=== PATIENT | female | born 1990 | race Caucasian/White ===

== ENCOUNTER 2016-05-01 10:50 | Inpatient (IN) | payer BC, OTHER ==
[2016-05-01 12:08] VITALS: BMI 19.1
--- NOTE | 2016-05-01 12:15 | HP ---
COWS - Scale Resting Pulse: 0= [place] 80 or Below Sweatin= Chills/Flushing Restless Observation: 1= Difficult to Sit Still Pupil Size: 0= Normal to Room Light Bone or Joint Aches: 2= Severe Diffuse Aches Runny Nose/ Eye Tearin= Runny Nose/Eyes GI Upset > 30mins: 1= Stomach Cramp Tremor Observation: 1= Tremor [place], Not Seen Yawning Observation: 1= 1-2x During Session Anxiety or Irritability: 1=Feels Anxious/Irritable Goose Flesh Skin: 0=Smooth Skin COWS Score: 10 Admission ROS BHS - HPI Chief Complaint: I get horrible withdrawal, I want to stop using Allergies/Adverse Reactions: Allergies Allergy/AdvReac Type Severity Reaction Status Date / Time No Known Allergies Allergy Verified 05/01/16 12:11 History of Present Illness: 25 yo woman here for detox from heroin - history of suboxone and outpatient rehab. No seizures. Exam Limitations: Clinical Condition - Ebola screening Have you traveled outside of the country in the last 21 days: No (N) Have you had contact with anyone from an Ebola affected area: No Have you been sick,other than usual withdrawal symptoms: No Do you have a fever: No - Review of Systems Constitutional: Loss of Appetite, Malaise, Changes in sleep, Unintentional Wgt. Loss EENT: reports: Nose Congestion Respiratory: reports: No Symptoms reported Cardiac: reports: No Symptoms Reported GI: reports: Nausea, Poor Appetite, Indigestion, Abdominal cramping : reports: No Symptoms Reported Musculoskeletal: reports: Muscle Pain Integumentary: reports: No Symptoms Reported Neuro: reports: Headache Endocrine: reports: No Symptoms Reported Hematology: reports: No Symptoms Reported Psychiatric: reports: Judgement Intact, Mood/Affect Appropiate, Orientated x3, Anxious Other Systems: Reviewed and Negative Patient History - Patient Medical History Hx Anemia: No Hx Asthma: No Hx Chronic Obstructive Pulmonary Disease (COPD): No Hx Cancer: No Hx Cardiac Disorders: No Hx Congestive Heart Failure: No Hx Hypertension: No Hx Hypercholesterolemia: No Hx Pacemaker: No HX Cerebrovascular Accident: No Hx Seizures: No Hx Dementia: No Hx Diabetes: No Hx Gastrointestinal Disorders: No Hx Liver Disease: No Hx Genitourinary Disorders: No Hx Sexually Transmitted Disorders: No Hx Renal Disease (ESRD): No Hx Thyroid Disease: No Hx Human Immunodeficiency Virus (HIV): No Hx Hepatitis C: No Hx Depression: No Hx Suicide Attempt: No Hx Bipolar Disorder: No Hx Schizophrenia: No - Patient Surgical History Past Surgical History: No - PPD History Previous Implant?: No PPD to be Administered?: Yes - Reproductive History Patient is a Female of Child Bearing Age (11 -55 yrs old): Yes Patient : No - Smoking Cessation Smoking history: Current every day smoker Have you smoked in the past 12 months: Yes Aproximately how many cigarettes per day: 6 Hx Chewing Tobacco Use: No Initiated information on smoking cessation: Yes 'Breaking Loose' booklet given: 05/01/16 (given on floor) - Substance & Tx. History Hx Alcohol Use: No Hx Substance Use: Yes Substance Use Type: Heroin Hx Substance Use Treatment: Yes (outpatient rehab, suboxone) - Substances Abused Heroin Route: Injection Frequency: Daily Amount used: 5-6 bags Age of first use: 23 Date of Last Use: 05/01/16 Family Disease History - Family Disease History Family Disease History: Other: Father ( alzheimers), Mother (social drinker) Admission Physical Exam S - Vital Signs Vital Signs: Vital Signs - 24 hr 05/01/16 12:03 Temperature 98.2 F Pulse Rate 73 Respiratory 18 Rate Blood Pressure 106/65 - Physical General Appearance: Yes: Nourished, Appropriately Dressed, Mild Distress, Thin, Anxious HEENTM: Yes: Hearing grossly Normal, Normocephalic, Normal Voice, Pharynx Normal , Nasal Congestion Respiratory: Yes: Normal Breath Sounds, Decreased Breath Sounds, No Respiratory Distress Neck: Yes: No masses,lesions,Nodules, Trachea in good position Breast: Yes: Breast Exam Deferred Cardiology: Yes: Regular Rhythm, Regular Rate Abdominal: Yes: Soft Genitourinary: Yes: Within Normal Limits Back: Yes: Within Normal Limits Musculoskeletal: Yes: full range of Motion, Gait Steady, Muscle Pain Extremities: Yes: Normal Inspection, Normal Range of Motion, Non-Tender Neurological: Yes: Fully Oriented, Alert, Normal Mood/Affect, Normal Response Integumentary: Yes: Normal Color, Warm, Track Barriga Lymphatic: Yes: Within Normal Limits - Diagnostic (1) Nicotine dependence Current Visit: Yes Status: Chronic Qualifiers: Nicotine product type: cigarettes Substance use status: uncomplicated Qualified Code(s): F17.210 - Nicotine dependence, cigarettes, uncomplicated (2) Uncomplicated opioid dependence Current Visit: Yes Status: Chronic Cleared for Admission [facility] - Detox or Rehab [facility] Level of Care: Medically Managed Detox Regimen/Protocol: Methadone [facility] Breath Alcohol Content Breath Alcohol Content: 0 Urine Pregancy Test - Result Urine Test Results: Negative- NO Line Present Urine Drug Screen - Results Drug Screen Negative: No Urine Drug Screen Results: OPI-Opiates, OXY-Oxycodone
[2016-05-01] MEDS ORDERED: LOPERAMIDE HCL 2 MG CAPSULE PO PRN (12:21)
[2016-05-01] MEDS ORDERED: MAG HYDROX/AL HYDROX/SIMETH 30 ML UNIT-DOSE CUP PO PRN (12:21)
[2016-05-01] MEDS ORDERED: NICOTINE POLACRILEX 2 MG GUM BC PRN (12:21)
[2016-05-01] MEDS ORDERED: ACETAMINOPHEN 325 MG TABLET (FP) PO PRN (12:21)
[2016-05-01] MEDS ORDERED: guaiFENesin/D-METHORPHAN HB 10 ML UNIT-DOSE CUPS PO PRN (12:21)
[2016-05-01] MEDS ORDERED: IBUPROFEN 400 MG TABLET (FP) PO PRN (12:21)
[2016-05-01] MEDS ORDERED: MAGNESIUM CITRATE 300 ML BOTTLE PO PRN (12:21)
[2016-05-01] MEDS ORDERED: P-EPHED 60MG/TRIPROLIDI 2.5MG TABLET PO PRN (12:21)
[2016-05-01] MEDS ORDERED: METHADONE HCL 10 MG TABLET (FOR DETOX USE ONLY) PO ONE ×3 (12:21→23:00)
[2016-05-01] MEDS ORDERED: MAGNESIUM HYDROX 2400MG/30ML ORAL SUSPENSION 30 ML CUP PO PRN (12:21)
[2016-05-01] MEDS ORDERED: MENTHOL/PHENOL 1 EACH UD MM PRN (12:21)
[2016-05-01] MEDS: diazePAM 5 MG TABLET PO PRN ×2 (16:02→22:14)
--- NOTE | 2016-05-01 16:02 | EKG ---
Test Reason : Blood Pressure : / mmHG Vent. Rate : 062 BPM Atrial Rate : 062 BPM P-R Int : 162 ms QRS Dur : 086 ms QT Int : 394 ms P-R-T Axes : 039 -44 036 degrees QTc Int : 399 ms NORMAL SINUS RHYTHM INDETERMINATE AXIS BORDERLINE ECG NO PREVIOUS ECGS AVAILABLE Confirmed by KINA AN, FLORIN ([id number]) on 05/01/2016 4:02:04 PM Referred By: Confirmed By:FLORIN CASTANON MD
[2016-05-01] MEDS: NICOTINE 7 MG/24 HOURS TOPICAL PATCH TD SCH (16:10)
[2016-05-01 17:55] LABS: URINE APPEARANCE CLOUDY; URINE BILIRUBIN NEGATIVE (NEGATIVE); URINE BLOOD NEGATIVE (NEGATIVE); URINE COLOR YELLOW; URINE GLUCOSE (UA) NEGATIVE (NEGATIVE); URINE KETONE NEGATIVE (NEGATIVE); URINE NITRITE NEGATIVE (NEGATIVE); URINE UROBILINOGEN NEGATIVE E.U./dl (0.2-1.0)
[2016-05-01 18:13] LABS: URINE LEUK ESTERASE 3+ (NEGATIVE); URINE PROTEIN 1+ (NEGATIVE)
[2016-05-01 18:33] LABS: URINE BACTERIA RARE /hpf (NONE SEEN); URINE MUCUS FEW; URINE RBC 9 /hpf (0-3); URINE WBC 11 /hpf (3-5)
[2016-05-01] MEDS: diphenhydrAMINE HCL 50 MG CAPSULE PO PRN (22:14)
[2016-05-01] MEDS: THIAMINE HCL 100 MG TABLET (FP) PO SCH (22:14)
[2016-05-02 09:22] LABS: MCHC 34.2 g/dl (32.0-36.0); MEAN CELL VOLUME 87.7 fl (80-96); MEAN PLT VOLUME 8.1 fl (7.5-11.1); PLATELET COUNT 270 K/MM3 (134-434); RDW 13.4 % (11.6-15.6)
[2016-05-02 09:24] LABS: ALBUMIN 3.3 g/dl (3.4-5.0); ALK PHOS 50 U/L (45-117); ANION GAP 7 (8-16); BILIRUBIN,TOTAL 0.3 mg/dL (0.2-1.0); CALCIUM 8.9 mg/dL (8.5-10.1); CO2 29 mmol/L (21-32); CREATININE 0.6 mg/dL (0.55-1.02); GLUCOSE,RANDOM 87 mg/dL (74-106); SGOT/AST 15 U/L (15-37); SGPT/ALT 24 U/L (12-78); TOT PROT 6.1 g/dl (6.4-8.2)
[2016-05-02] MEDS ORDERED: METHADONE HCL 10 MG TABLET (FOR DETOX USE ONLY) PO ONE (10:00)
[2016-05-02] MEDS: PRENATAL VITAMINS W/ FOLIC ACID TABLET (FP) PO SCH (10:35)
[2016-05-02] MEDS: NICOTINE 7 MG/24 HOURS TOPICAL PATCH TD SCH (10:38)
[2016-05-02] MEDS: diazePAM 5 MG TABLET PO PRN ×2 (10:39→21:43)
--- NOTE | 2016-05-02 11:48 | PN ---
BHS COWS - Scale Resting Pulse: 1= [place] 81-100 Sweatin=Flushed/Facial Moisture Restless Observation: 3= Extraneous Movement Pupil Size: 1= Pupils >than Normal Bone or Joint Aches: 2= Severe Diffuse Aches Runny Nose/ Eye Tearin= Runny Nose/Eyes GI Upset > 30mins: 2= Nausea/Diarrhea Tremor Observation of Outstretched Hands: 2= Slight Tremor Visible Yawning Observation: 1= 1-2x During Session Anxiety or Irritability: 2=Irritable/Anxious Goose Flesh Skin: 0=Smooth Skin COWS Score: 18 BHS Progress Note (SOAP) Subjective: ALERT,IRRITABLE,ANXIOUS,INTERRUPTED SLEEP,PAIN IN THE BODY BACK Objective: 05/02/16 11:45 Vital Signs Temperature 98.1 F 05/02/16 10:00 Pulse Rate 89 05/02/16 10:00 Respiratory Rate 18 05/02/16 10:00 Blood Pressure 113/60 05/02/16 10:00 O2 Sat by Pulse Oximetry (%) EKG NSR Laboratory Last Values WBC 5.0 K/mm3 (4.0-10.0) 05/02/16 07:20 RBC 4.44 M/mm3 (3.60-5.2) 05/02/16 07:20 Hgb 13.3 GM/dL (10.7-15.3) 05/02/16 07:20 Hct 39.0 % (32.4-45.2) 05/02/16 07:20 MCV 87.7 fl (80-96) 05/02/16 07:20 MCHC 34.2 g/dl (32.0-36.0) 05/02/16 07:20 RDW 13.4 % (11.6-15.6) 05/02/16 07:20 Plt Count 270 K/MM3 (134-434) 05/02/16 07:20 MPV 8.1 fl (7.5-11.1) 05/02/16 07:20 Sodium 144 mmol/L (136-145) 05/02/16 07:20 Potassium 4.1 mmol/L (3.5-5.1) 05/02/16 07:20 Chloride 108 mmol/L (98-107) H 05/02/16 07:20 Carbon Dioxide 29 mmol/L (21-32) 05/02/16 07:20 Anion Gap 7 (8-16) L 05/02/16 07:20 BUN 10 mg/dL (7-18) 05/02/16 07:20 Creatinine 0.6 mg/dL (0.55-1.02) 05/02/16 07:20 Creat Clearance w eGFR > 60 (>60) 05/02/16 07:20 Random Glucose 87 mg/dL (74-106) 05/02/16 07:20 Calcium 8.9 mg/dL (8.5-10.1) 05/02/16 07:20 Total Bilirubin 0.3 mg/dL (0.2-1.0) 05/02/16 07:20 AST 15 U/L (15-37) 05/02/16 07:20 ALT 24 U/L (12-78) 05/02/16 07:20 Alkaline Phosphatase 50 U/L (45-117) 05/02/16 07:20 Total Protein 6.1 g/dl (6.4-8.2) L 05/02/16 07:20 Albumin 3.3 g/dl (3.4-5.0) L 05/02/16 07:20 Urine Color Yellow 05/01/16 14:00 Urine Appearance Cloudy 05/01/16 14:00 Urine pH 5.0 (5.0-8.0) 05/01/16 14:00 Ur Specific [place] 1.020 (1.001-1.035) 05/01/16 14:00 Urine Protein 1+ (NEGATIVE) H 05/01/16 14:00 Urine Glucose (UA) Negative (NEGATIVE) 05/01/16 14:00 Urine Ketones Negative (NEGATIVE) 05/01/16 14:00 Urine Blood Negative (NEGATIVE) 05/01/16 14:00 Urine Nitrite Negative (NEGATIVE) 05/01/16 14:00 Urine Bilirubin Negative (NEGATIVE) 05/01/16 14:00 Urine Urobilinogen Negative E.U./dl (0.2-1.0) 05/01/16 14:00 Ur Leukocyte Esterase 3+ (NEGATIVE) H 05/01/16 14:00 Urine RBC 9 /hpf (0-3) 05/01/16 14:00 Urine WBC 11 /hpf (3-5) 05/01/16 14:00 Ur Epithelial Cells Many /hpf (FEW) 05/01/16 14:00 Urine Bacteria Rare /hpf (NONE SEEN) 05/01/16 14:00 Urine Mucus Few 05/01/16 14:00 RPR Titer Nonreactive (NONREACTIVE) 05/02/16 07:20 Assessment: 05/02/16 11:47 WITHDRAWAL SYMPTOM Plan: CONTINUE DETOX,REPEAT UA
[2016-05-02] MEDS: THIAMINE HCL 100 MG TABLET (FP) PO SCH (21:40)
[2016-05-02] MEDS: diphenhydrAMINE HCL 50 MG CAPSULE PO PRN (21:44)
[2016-05-03] MEDS ORDERED: METHADONE HCL 5 MG TABLET (FOR DETOX USE ONLY) PO ONE (10:00)
--- NOTE | 2016-05-03 10:17 | PN ---
S COWS - Scale Resting Pulse: 0= [place] 80 or Below Sweatin= Chills/Flushing Restless Observation: 3= Extraneous Movement Pupil Size: 1= Pupils >than Normal Bone or Joint Aches: 2= Severe Diffuse Aches Runny Nose/ Eye Tearin= Runny Nose/Eyes GI Upset > 30mins: 2= Nausea/Diarrhea Tremor Observation of Outstretched Hands: 2= Slight Tremor Visible Yawning Observation: 1= 1-2x During Session Anxiety or Irritability: 2=Irritable/Anxious Goose Flesh Skin: 0=Smooth Skin COWS Score: 16 S Progress Note (SOAP) Subjective: ALERT,IRRITABLE,ANXIOUS,INTERRUPTED SLEEP,TREMOR,PAIN IN THE BODY AND BACK Objective: 05/03/16 10:16 Vital Signs Temperature 97.9 F 05/03/16 09:51 Pulse Rate 78 05/03/16 09:51 Respiratory Rate 18 05/03/16 09:51 Blood Pressure 107/68 05/03/16 09:51 O2 Sat by Pulse Oximetry (%) Laboratory Last Values WBC 5.0 K/mm3 (4.0-10.0) 05/02/16 07:20 RBC 4.44 M/mm3 (3.60-5.2) 05/02/16 07:20 Hgb 13.3 GM/dL (10.7-15.3) 05/02/16 07:20 Hct 39.0 % (32.4-45.2) 05/02/16 07:20 MCV 87.7 fl (80-96) 05/02/16 07:20 MCHC 34.2 g/dl (32.0-36.0) 05/02/16 07:20 RDW 13.4 % (11.6-15.6) 05/02/16 07:20 Plt Count 270 K/MM3 (134-434) 05/02/16 07:20 MPV 8.1 fl (7.5-11.1) 05/02/16 07:20 Sodium 144 mmol/L (136-145) 05/02/16 07:20 Potassium 4.1 mmol/L (3.5-5.1) 05/02/16 07:20 Chloride 108 mmol/L (98-107) H 05/02/16 07:20 Carbon Dioxide 29 mmol/L (21-32) 05/02/16 07:20 Anion Gap 7 (8-16) L 05/02/16 07:20 BUN 10 mg/dL (7-18) 05/02/16 07:20 Creatinine 0.6 mg/dL (0.55-1.02) 05/02/16 07:20 Creat Clearance w eGFR > 60 (>60) 05/02/16 07:20 Random Glucose 87 mg/dL (74-106) 05/02/16 07:20 Calcium 8.9 mg/dL (8.5-10.1) 05/02/16 07:20 Total Bilirubin 0.3 mg/dL (0.2-1.0) 05/02/16 07:20 AST 15 U/L (15-37) 05/02/16 07:20 ALT 24 U/L (12-78) 05/02/16 07:20 Alkaline Phosphatase 50 U/L (45-117) 05/02/16 07:20 Total Protein 6.1 g/dl (6.4-8.2) L 05/02/16 07:20 Albumin 3.3 g/dl (3.4-5.0) L 05/02/16 07:20 Urine Color Yellow 05/01/16 14:00 Urine Appearance Cloudy 05/01/16 14:00 Urine pH 5.0 (5.0-8.0) 05/01/16 14:00 Ur Specific [place] 1.020 (1.001-1.035) 05/01/16 14:00 Urine Protein 1+ (NEGATIVE) H 05/01/16 14:00 Urine Glucose (UA) Negative (NEGATIVE) 05/01/16 14:00 Urine Ketones Negative (NEGATIVE) 05/01/16 14:00 Urine Blood Negative (NEGATIVE) 05/01/16 14:00 Urine Nitrite Negative (NEGATIVE) 05/01/16 14:00 Urine Bilirubin Negative (NEGATIVE) 05/01/16 14:00 Urine Urobilinogen Negative E.U./dl (0.2-1.0) 05/01/16 14:00 Ur Leukocyte Esterase 3+ (NEGATIVE) H 05/01/16 14:00 Urine RBC 9 /hpf (0-3) 05/01/16 14:00 Urine WBC 11 /hpf (3-5) 05/01/16 14:00 Ur Epithelial Cells Many /hpf (FEW) 05/01/16 14:00 Urine Bacteria Rare /hpf (NONE SEEN) 05/01/16 14:00 Urine Mucus Few 05/01/16 14:00 RPR Titer Nonreactive (NONREACTIVE) 05/02/16 07:20 WITHDRAWAL SYMPTOM Assessment: 05/03/16 10:17 WITHDRAWAL SYMPTOM Plan: CONTINUE DETOX
--- NOTE | 2016-05-03 10:25 | CONSULT ---
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 Substance Abuse History: Patient reports using heroin 5-6 bags a day IV use, smokes cigarettes 6-8 a day. Medical History: reports good health. Psychiatric History: Patient reports was seen by a private psychiatrist for suboxone, reports he did not work for her and she stopped it, her psychiatrist was given her Gabapentin to help her with anxiety which was effective while she was tapering off , now she feels anxious and willing to restart medication. Physical/Sexual Abuse/Trauma History: Denies hisory of abuse. Mental Status Exam - Mental Status Exam Alert and Oriented to: Time, Place, Person Cognitive Function: Grossly Intact Patient Appearance: Well Groomed Mood: Anxious Affect: Appropriate, Mood Congruent Patient Behavior: Appropriate, Cooperative Speech Pattern: Clear Voice Loudness: Normal Thought Process: Intact Thought Disorder: Not Present Hallucinations: None Suicidal Ideation: None Homicidal Ideation: None Insight/Judgement: Good Sleep: Poorly Appetite: Fair Muscle strength/Tone: Normal Gait/Station: Normal Psychiatric Findings - Problem List ([place] 1, 2,3) (1) Nicotine dependence Current Visit: Yes Status: Chronic Qualifiers: Nicotine product type: cigarettes Substance use status: uncomplicated Qualified Code(s): F17.210 - Nicotine dependence, cigarettes, uncomplicated (2) Opioid dependence Current Visit: Yes Status: Acute (3) 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
[2016-05-03] MEDS: PRENATAL VITAMINS W/ FOLIC ACID TABLET (FP) PO SCH (10:37)
[2016-05-03] MEDS: cloNIDine HCL 0.1 MG TABLET PO SCH ×2 (10:40→22:35)
[2016-05-03] MEDS: CYCLOBENZAPRINE HCL 10 MG TABLET (FP) PO PRN ×2 (10:40→22:35)
[2016-05-03] MEDS: NICOTINE 7 MG/24 HOURS TOPICAL PATCH TD SCH (10:42)
[2016-05-03 11:00] LABS: URINE APPEARANCE TURBID; URINE BILIRUBIN NEGATIVE (NEGATIVE); URINE COLOR DKYELLOW; URINE GLUCOSE (UA) NEGATIVE (NEGATIVE); URINE KETONE NEGATIVE (NEGATIVE); URINE NITRITE NEGATIVE (NEGATIVE); URINE PROTEIN NEGATIVE (NEGATIVE); URINE UROBILINOGEN NEGATIVE E.U./dl (0.2-1.0)
[2016-05-03 11:03] LABS: URINE BLOOD 1+ (NEGATIVE); URINE LEUK ESTERASE 2+ (NEGATIVE)
[2016-05-03 11:31] LABS: URINE BACTERIA MANY /hpf (NONE SEEN); URINE MUCUS RARE; URINE RBC 1 /hpf (0-3); URINE WBC 16 /hpf (3-5); YEAST FEW
[2016-05-03] MEDS: diazePAM 5 MG TABLET PO PRN ×2 (12:01→22:39)
[2016-05-03] MEDS: hydrOXYzine PAMOATE 50 MG CAPSULE (FP) PO PRN (12:01)
[2016-05-03] MEDS: GABAPENTIN 100 MG CAPSULE (FP) PO SCH ×2 (13:39→22:35)
[2016-05-03] MEDS: THIAMINE HCL 100 MG TABLET (FP) PO SCH (22:36)
[2016-05-03] MEDS: diphenhydrAMINE HCL 50 MG CAPSULE PO PRN (22:37)
[2016-05-04] MEDS: GABAPENTIN 100 MG CAPSULE (FP) PO SCH ×3 (07:20→22:23)
[2016-05-04] MEDS ORDERED: METHADONE HCL 5 MG TABLET (FOR DETOX USE ONLY) PO ONE (10:00)
[2016-05-04] MEDS: NICOTINE 7 MG/24 HOURS TOPICAL PATCH TD SCH (10:40)
[2016-05-04] MEDS: PRENATAL VITAMINS W/ FOLIC ACID TABLET (FP) PO SCH (11:06)
[2016-05-04] MEDS: cloNIDine HCL 0.1 MG TABLET PO SCH ×2 (11:06→22:31)
[2016-05-04] MEDS: diazePAM 5 MG TABLET PO PRN (11:09)
--- NOTE | 2016-05-04 14:47 | PN ---
BHS Progress Note (SOAP) Subjective: interrupted sleep, sweats Objective: 05/04/16 14:46 Vital Signs Temperature 98.4 F 05/04/16 13:59 Pulse Rate 90 05/04/16 13:59 Respiratory Rate 16 05/04/16 13:59 Blood Pressure 94/59 05/04/16 13:59 O2 Sat by Pulse Oximetry (%) Laboratory Tests 05/01/16 05/02/16 05/02/16 14:00 07:20 07:20 WBC 5.0 RBC 4.44 Hgb 13.3 Hct 39.0 MCV 87.7 MCHC 34.2 RDW 13.4 Plt Count 270 MPV 8.1 Sodium 144 Potassium 4.1 Chloride 108 H Carbon Dioxide 29 Anion Gap 7 L BUN 10 Creatinine 0.6 Creat Clearance w eGFR > 60 Random Glucose 87 Calcium 8.9 Total Bilirubin 0.3 AST 15 ALT 24 Alkaline Phosphatase 50 Total Protein 6.1 L Albumin 3.3 L Urine Color Yellow Urine Appearance Cloudy Urine pH 5.0 Ur Specific [place] 1.020 Urine Protein 1+ H Urine Glucose (UA) Negative Urine Ketones Negative Urine Blood Negative Urine Nitrite Negative Urine Bilirubin Negative Urine Urobilinogen Negative Ur Leukocyte Esterase 3+ H Urine RBC 9 Urine WBC 11 Ur Epithelial Cells Many Urine Bacteria Rare Urine Mucus Few Urine Yeast RPR Titer Hepatitis C Antibody 05/02/16 05/02/16 05/03/16 07:20 07:20 08:00 WBC RBC Hgb Hct MCV MCHC RDW Plt Count MPV Sodium Potassium Chloride Carbon Dioxide Anion Gap BUN Creatinine Creat Clearance w eGFR Random Glucose Calcium Total Bilirubin AST ALT Alkaline Phosphatase Total Protein Albumin Urine Color Dkyellow Urine Appearance Turbid Urine pH 6.0 Ur Specific [place] 1.019 Urine Protein Negative Urine Glucose (UA) Negative Urine Ketones Negative Urine Blood 1+ H Urine Nitrite Negative Urine Bilirubin Negative Urine Urobilinogen Negative Ur Leukocyte Esterase 2+ H Urine RBC 1 Urine WBC 16 Ur Epithelial Cells Many Urine Bacteria Many Urine Mucus Rare Urine Yeast Few RPR Titer Nonreactive Hepatitis C Antibody 0.2 pt aox3 in nad ambulating Assessment: 05/04/16 14:46 withdrawl sx's Plan: cont. detox increase fluids
[2016-05-04] MEDS: THIAMINE HCL 100 MG TABLET (FP) PO SCH (22:23)
[2016-05-04] MEDS: diphenhydrAMINE HCL 50 MG CAPSULE PO PRN (22:24)
[2016-05-05] MEDS: GABAPENTIN 100 MG CAPSULE (FP) PO SCH ×3 (05:23→22:25)
[2016-05-05] MEDS ORDERED: METHADONE HCL 10 MG TABLET (FOR DETOX USE ONLY) PO ONE (10:00)
[2016-05-05] MEDS: PRENATAL VITAMINS W/ FOLIC ACID TABLET (FP) PO SCH (10:44)
[2016-05-05] MEDS: hydrOXYzine PAMOATE 50 MG CAPSULE (FP) PO PRN (10:45)
[2016-05-05] MEDS: cloNIDine HCL 0.1 MG TABLET PO SCH ×2 (10:45→22:25)
[2016-05-05] MEDS: CYCLOBENZAPRINE HCL 10 MG TABLET (FP) PO PRN (10:45)
[2016-05-05] MEDS: NICOTINE 7 MG/24 HOURS TOPICAL PATCH TD SCH (10:46)
--- NOTE | 2016-05-05 11:05 | PN ---
Psychiatric Progress Note Vital Signs: Vital Signs Period Temp Pulse Resp BP Sys/Arredondo Pulse Ox Last 24 Hr 97.4 F-98.4 F 56-90 16-18 94-103/56-64 Date of Session: 05/05/16 Chief Complaint:: My Vistaril HPI: Patient reprots good response on Vistaril for Anxiety and asking month supply upon dischsge Current Medications: Active Medications Generic Name Dose Route Start Last Admin Trade Name Freq PRN Reason Stop Dose Admin Acetaminophen 650 mg 05/01/16 12:21 Tylenol - PO Q4H PRN FEVER OR PAIN Al Hydroxide/Mg Hydroxide 30 ml 05/01/16 12:21 Mylanta Oral Suspension - PO Q6H PRN DYSPEPSIA Clonidine 0.1 mg 05/03/16 10:00 05/05/16 10:45 Catapres - PO 0.1 mg BID LAKHWINDER Administration Cyclobenzaprine HCl 10 mg 05/03/16 09:38 05/05/16 10:45 Flexeril - PO 10 mg TID PRN Administration MUSCLE SPASMS Diphenhydramine HCl 50 mg 05/01/16 12:21 05/04/16 22:24 Benadryl - PO 50 mg HSMR1 PRN Administration INSOMNIA Eucalyptus/Menthol/Phenol/Sorbitol 1 each 05/01/16 12:21 Cepastat Lozenge - MM Q4H PRN SORE THROAT Gabapentin 100 mg 05/03/16 14:00 05/05/16 05:23 Neurontin - PO 100 mg TID LAKHWINDER Administration Guaifenesin 10 ml 05/01/16 12:21 Robitussin Dm - PO Q6H PRN COUGH Hydroxyzine Pamoate 50 mg 05/01/16 12:21 05/05/16 10:45 Vistaril - PO 50 mg Q4H PRN Administration AGITATION Ibuprofen 400 mg 05/01/16 12:21 05/02/16 21:43 Motrin - PO 400 mg Q6H PRN Administration SEVERE PAIN Loperamide HCl 4 mg 05/01/16 12:21 Imodium - PO Q6H PRN DIARRHEA Magnesium Citrate 300 ml 05/01/16 12:21 Citroma - PO Q48H PRN CONSTIPATION Magnesium Hydroxide 30 ml 05/01/16 12:21 Milk Of Magnesia - PO DAILY PRN CONSTIPATION Methadone HCl 5 mg 05/06/16 06:00 Dolophine - PO 05/06/16 06:01 ONCE@0600 ONE Nicotine 7 mg 05/01/16 12:30 05/05/16 10:46 Nicoderm Patch - TD 7 mg DAILY LAKHWINDER Administration Nicotine Polacrilex 2 mg 05/01/16 12:21 05/02/16 21:00 Nicorette Gum - BC 2 mg Q2H PRN Administration NICOTINE REPLACEMENT RX Multivit/Folic Acid/Iron 1 tab 05/02/16 10:00 05/05/16 10:44 Vitamins (Sjr) - PO 1 tab DAILY LAKHWINDER Administration Pseudoephedrine/Triprolidine 1 combo 05/01/16 12:21 Actifed - PO TID PRN NASAL CONGESTION Thiamine HCl 100 mg 05/01/16 22:00 05/04/16 22:23 Vitamin B1 - PO 100 mg HS LAKHWINDER Administration Medication(s) Change(s): Vistaril 50mg po qid #120 issued to [facility] Mental Status Exam - Mental Status Exam Alert and Oriented to: Person Cognitive Function: Fair Patient Appearance: Well Groomed Mood: Anxious Affect: Appropriate Patient Behavior: Cooperative Speech Pattern: Appropriate Voice Loudness: Normal Thought Process: Goal Oriented Thought Disorder: Being Controlled Hallucinations: Denies Suicidal Ideation: Denies Homicidal Ideation: Denies Insight/Judgement: Fair Sleep: Fair, Difficulty falling asleep Appetite: Weight loss Muscle strength/Tone: Normal Gait/Station: Normal Additional Comments: Vistaril 50mg po qid #120 issued to [facility] Psychiatric Treatment Plan - Problem List (1) Opioid dependence Current Visit: Yes (2) 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
--- NOTE | 2016-05-05 11:45 | PN ---
BHS Progress Note (SOAP) Subjective: interrupted sleep, otherwise well Objective: 05/05/16 11:44 Vital Signs Temperature 97.9 F 05/05/16 10:01 Pulse Rate 86 05/05/16 10:01 Respiratory Rate 16 05/05/16 10:01 Blood Pressure 103/64 05/05/16 10:01 O2 Sat by Pulse Oximetry (%) Laboratory Tests 05/01/16 05/02/16 05/02/16 14:00 07:20 07:20 WBC 5.0 RBC 4.44 Hgb 13.3 Hct 39.0 MCV 87.7 MCHC 34.2 RDW 13.4 Plt Count 270 MPV 8.1 Sodium 144 Potassium 4.1 Chloride 108 H Carbon Dioxide 29 Anion Gap 7 L BUN 10 Creatinine 0.6 Creat Clearance w eGFR > 60 Random Glucose 87 Calcium 8.9 Total Bilirubin 0.3 AST 15 ALT 24 Alkaline Phosphatase 50 Total Protein 6.1 L Albumin 3.3 L Urine Color Yellow Urine Appearance Cloudy Urine pH 5.0 Ur Specific [place] 1.020 Urine Protein 1+ H Urine Glucose (UA) Negative Urine Ketones Negative Urine Blood Negative Urine Nitrite Negative Urine Bilirubin Negative Urine Urobilinogen Negative Ur Leukocyte Esterase 3+ H Urine RBC 9 Urine WBC 11 Ur Epithelial Cells Many Urine Bacteria Rare Urine Mucus Few Urine Yeast RPR Titer Hepatitis C Antibody 05/02/16 05/02/16 05/03/16 07:20 07:20 08:00 WBC RBC Hgb Hct MCV MCHC RDW Plt Count MPV Sodium Potassium Chloride Carbon Dioxide Anion Gap BUN Creatinine Creat Clearance w eGFR Random Glucose Calcium Total Bilirubin AST ALT Alkaline Phosphatase Total Protein Albumin Urine Color Dkyellow Urine Appearance Turbid Urine pH 6.0 Ur Specific [place] 1.019 Urine Protein Negative Urine Glucose (UA) Negative Urine Ketones Negative Urine Blood 1+ H Urine Nitrite Negative Urine Bilirubin Negative Urine Urobilinogen Negative Ur Leukocyte Esterase 2+ H Urine RBC 1 Urine WBC 16 Ur Epithelial Cells Many Urine Bacteria Many Urine Mucus Rare Urine Yeast Few RPR Titer Nonreactive Hepatitis C Antibody 0.2 pt aox3 in nad ambulating Assessment: 05/05/16 11:44 withdrawl sx;s ' Plan: cont. detox increase fluids d/c in am
[2016-05-05] MEDS: THIAMINE HCL 100 MG TABLET (FP) PO SCH (22:25)
[2016-05-06] MEDS: GABAPENTIN 100 MG CAPSULE (FP) PO SCH (05:14)
[2016-05-06] MEDS ORDERED: METHADONE HCL 5 MG TABLET (FOR DETOX USE ONLY) PO ONE (06:00)
[2016-05-06 06:26] VITALS: BP 98/60; PULSE 130; TEMP 97.1
--- NOTE | 2016-05-06 08:51 | DS ---
[facility] Detox Discharge Summary Admission Date: 05/01/16 Discharge Date: 05/06/16 - History Present History: Opioid Dependence - Physical Exam Results Vital Signs: Vital Signs Temperature 97.1 F L 05/06/16 06:25 Pulse Rate 130 H 05/06/16 06:25 Respiratory Rate 20 05/06/16 06:25 Blood Pressure 98/60 05/06/16 06:25 O2 Sat by Pulse Oximetry (%) - Treatment Hospital Course: Detox Protocol Followed, Detoxed Safely, Responded well, Discharged Condition Good, Rehab Referral Accepted - Medication Discharge Medications: Ambulatory Orders Hydroxyzine Pamoate [Vistaril -] 50 mg PO QID #120 capsule 05/05/16 - Diagnosis (1) Drug-induced mood disorder Current Visit: Yes Status: Chronic (2) 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
== END 2016-05-06 08:54 | disposition home or self-care (01) | DRG 897 ==
LOC: YASAS 10:50 → Y6N 13:35
PROVIDERS: ADMIT Internal Medicine; ATTEND Internal Medicine
PROC: HZ2ZZZZ Detoxification Services for Substance Abuse Treatment (ICD-10-PCS; principal; 2016-05-01)
DX: F11.23 Opioid dependence with withdrawal (principal); F11.288 Opioid dependence with other opioid-induced disorder; F17.210 Nicotine dependence, cigarettes, uncomplicated; F19.24 Other psychoactive substance dependence with psychoactive substance-induced mood disorder
CPT/HCPCS: 36415; 80053; 81003; 81015; 85027; 86593; 86803; 93005; 93010